=== PATIENT | female | born 1935 | race Caucasian/White ===

== ENCOUNTER 2021-11-19 11:06 | Inpatient (IN) | payer OTHER ==
[~2021-11-19] VITALS: Ht 147.3 cm; Wt 49.4 kg
[2021-11-19] MEDS ORDERED: KETOROLAC 30MG/ML VIAL IV STA (13:12)
[2021-11-19] MEDS ORDERED: SODIUM CHLORIDE 0.9% 1,000 ML IV ONE (13:15)
[2021-11-19 13:39] LABS: BASOPHILS % 0.3 % (0.0-2.0); EOSINOPHILS % 0.9 % (0.0-5.0); HEMATOCRIT. 35.3 % (36.0-48.0); HEMOGLOBIN. 11.3 g/dL (12.0-16.0); LYMPHOCYTES % 11.4 % (20.0-50.0); MEAN CORPUSCULAR HEMOGLOBIN 26.5 pg (28.0-32.0); MEAN CORPUSCULAR VOLUME 82.8 fL (81.0-99.0); MEAN PLATELET VOLUME 6.9 fl (7.4-10.4); MONOCYTES % 10.2 % (2.0-8.0); NEUTROPHILS % 77.2 % (40.0-76.0); PLATELET 273 x1000/uL (130-400); RED BLOOD CELL COUNT 4.27 mill/uL (4.2-5.4); RED CELL DISTRIBUTION WIDTH 16.9 % (11.6-14.6)
[2021-11-19 13:45] LABS: CHLORIDE 102 mEq/L (98-107)
[2021-11-19 15:53] LABS: CLARITY URINE CLEAR (CLEAR); COLOR URINE YELLOW (YELLOW); KETONES URINE TRACE (NEGATIVE); LEUKOCYTE ESTERASE URINE NEGATIVE (NEGATIVE); NITRITE URINE NEGATIVE (NEGATIVE); OCCULT BLOOD URINE NEGATIVE (NEGATIVE); PH URINE 6.5 (4.5-8.0); PROTEIN URINE NEGATIVE (NEGATIVE); SPECIFIC GRAVITY URINE 1.005 (1.005-1.030)
[2021-11-19] MEDS ORDERED: AMPICILLIN SOD/SULBACTAM NA 3 G in SODIUM CHLORIDE 0.9% 100 ML IV STA (16:51)
[2021-11-19] MEDS ORDERED: MORPHINE SULFATE 2 MG/ML CPJ (NOT FOR IM USE) IV ONE (17:00)
[2021-11-19 21:45] VITALS: BP 143/51
[2021-11-19 22:30] VITALS: BP 143/51
[2021-11-19] MEDS ORDERED: METRONIDAZOLE 500 MG PREMIX 100 ML IV SCH (23:15)
[2021-11-19] MEDS ORDERED: CEFTRIAXONE 1 G PREMIX 50 ML IV SCH (23:30)
[2021-11-19] MEDS: ACETAMINOPHEN 325MG TABLET PO PRN (23:57)
[2021-11-20] VITALS: BP 145/78
[2021-11-20] MEDS: CEFTRIAXONE 1,000 MG in DEXTROSE 5% WATER 50 ML IV SCH (01:38)
[2021-11-20] MEDS: SODIUM CHLORIDE 0.9% 1,000 ML IV SCH ×2 (01:38→19:30)
[2021-11-20 04:00] VITALS: BP 103/30
[2021-11-20] MEDS: METRONIDAZOLE 500 MG PREMIX 100 ML IV SCH ×3 (05:11→20:47)
[2021-11-20 07:10] LABS: HEMATOCRIT. 30.3 % (36.0-48.0); HEMOGLOBIN. 9.7 g/dL (12.0-16.0); MEAN CORPUSCULAR HEMOGLOBIN 26.4 pg (28.0-32.0); MEAN CORPUSCULAR VOLUME 82.6 fL (81.0-99.0); MEAN PLATELET VOLUME 6.5 fl (7.4-10.4); PLATELET 243 x1000/uL (130-400); RED BLOOD CELL COUNT 3.67 mill/uL (4.2-5.4); RED CELL DISTRIBUTION WIDTH 16.4 % (11.6-14.6)
[2021-11-20 07:21] LABS: CHLORIDE 109 mEq/L (98-107)
[2021-11-20 08:00] VITALS: BP 135/35
[2021-11-20] MEDS ORDERED: CEFTRIAXONE SODIUM 1 G/VIAL IM SCH (09:00)
[2021-11-20 09:40] LABS: PLATELET ESTIMATE NORMAL
[2021-11-20 12:00] VITALS: BP 134/42
[2021-11-20] MEDS: ACETAMINOPHEN 325MG TABLET PO PRN (14:24)
[2021-11-20 16:00] VITALS: BP 151/45
[2021-11-20 20:00] VITALS: BP 136/48
[2021-11-21] VITALS: BP 135/50
[2021-11-21] MEDS: CEFTRIAXONE 1,000 MG in DEXTROSE 5% WATER 50 ML IV SCH (01:20)
[2021-11-21 04:00] VITALS: BP 129/32
[2021-11-21] MEDS: METRONIDAZOLE 500 MG PREMIX 100 ML IV SCH ×3 (05:07→21:08)
[2021-11-21 07:27] LABS: PROTHROMBIN TIME 11.1 sec (9.6-11.0)
[2021-11-21 07:33] LABS: BASOPHILS % 0.5 % (0.0-2.0); EOSINOPHILS % 3.5 % (0.0-5.0); HEMATOCRIT. 31.2 % (36.0-48.0); LYMPHOCYTES % 24.8 % (20.0-50.0); MEAN CORPUSCULAR HEMOGLOBIN 26.7 pg (28.0-32.0); MEAN PLATELET VOLUME 6.5 fl (7.4-10.4); MONOCYTES % 14.6 % (2.0-8.0); NEUTROPHILS % 56.6 % (40.0-76.0); PLATELET 282 x1000/uL (130-400); RED BLOOD CELL COUNT 3.75 mill/uL (4.2-5.4); RED CELL DISTRIBUTION WIDTH 16.8 % (11.6-14.6)
[2021-11-21 07:57] LABS: CHLORIDE 113 mEq/L (98-107)
[2021-11-21 08:00] VITALS: BP 137/57
[2021-11-21 08:06] LABS: TOTAL IRON BINDING CAPACITY 227 ug/dL (250-450)
[2021-11-21 08:09] LABS: FOLIC ACID (FOLATE) SERUM 13.1 ng/mL (>5.38)
[2021-11-21 12:00] VITALS: BP 133/65
[2021-11-21] MEDS: SODIUM CHLORIDE 0.9% 1,000 ML IV SCH (14:32)
[2021-11-21 17:54] VITALS: BP 148/51
[2021-11-21] MEDS: ACETAMINOPHEN 325MG TABLET PO PRN (21:22)
[2021-11-22] MEDS: CEFTRIAXONE 1,000 MG in DEXTROSE 5% WATER 50 ML IV SCH (00:31)
[2021-11-22] MEDS: METRONIDAZOLE 500 MG PREMIX 100 ML IV SCH ×2 (05:06→13:18)
[2021-11-22 07:31] LABS: HEMATOCRIT. 33.3 % (36.0-48.0); HEMOGLOBIN. 10.6 g/dL (12.0-16.0); MEAN CORPUSCULAR HEMOGLOBIN 26.2 pg (28.0-32.0); MEAN CORPUSCULAR VOLUME 82.4 fL (81.0-99.0); MEAN PLATELET VOLUME 6.2 fl (7.4-10.4); PLATELET 309 x1000/uL (130-400); RED BLOOD CELL COUNT 4.05 mill/uL (4.2-5.4); RED CELL DISTRIBUTION WIDTH 16.9 % (11.6-14.6)
[2021-11-22 08:00] VITALS: BP 131/53
[2021-11-22 08:15] LABS: CHLORIDE 112 mEq/L (98-107)
[2021-11-22] MEDS: SODIUM CHLORIDE 0.9% 1,000 ML IV SCH (11:18)
[2021-11-22 12:00] VITALS: BP 162/46
[2021-11-22 12:30] VITALS: BP 150/42
[2021-11-22] MEDS: ACETAMINOPHEN 325MG TABLET PO PRN (13:32)
[2021-11-22 16:00] VITALS: BP 157/52
[2021-11-22] MEDS ORDERED: POTASSIUM CHLORIDE 20MEQ TABLET SR PO NR (16:00)
[2021-11-22 16:51] LABS: PLATELET ESTIMATE NORMAL
[2021-11-22 20:57] VITALS: BP 162/67
[2021-11-23 00:11] VITALS: BP 155/44
[2021-11-23 03:46] VITALS: BP 160/48
[2021-11-23] MEDS: CEFTRIAXONE 1,000 MG in DEXTROSE 5% WATER 50 ML IV SCH (04:11)
[2021-11-23] MEDS: METRONIDAZOLE 500 MG PREMIX 100 ML IV SCH ×4 (04:13→21:34)
[2021-11-23] MEDS: SODIUM CHLORIDE 0.9% 1,000 ML IV SCH (06:45)
[2021-11-23 07:18] LABS: HEMATOCRIT. 31.7 % (36.0-48.0); HEMOGLOBIN. 10.2 g/dL (12.0-16.0); MEAN CORPUSCULAR HEMOGLOBIN 26.4 pg (28.0-32.0); MEAN CORPUSCULAR VOLUME 81.8 fL (81.0-99.0); MEAN PLATELET VOLUME 5.9 fl (7.4-10.4); PLATELET 329 x1000/uL (130-400); RED BLOOD CELL COUNT 3.88 mill/uL (4.2-5.4); RED CELL DISTRIBUTION WIDTH 16.5 % (11.6-14.6)
[2021-11-23 07:44] LABS: CHLORIDE 112 mEq/L (98-107)
[2021-11-23 08:00] VITALS: BP 161/50
[2021-11-23] MEDS ORDERED: CLONIDINE 0.1MG TABLET PO PRN (11:15)
[2021-11-23] MEDS: ACETAMINOPHEN 325MG TABLET PO PRN (11:22)
[2021-11-23 12:00] VITALS: BP 142/58
[2021-11-23 13:58] LABS: PLATELET ESTIMATE NORMAL
[2021-11-23 16:00] VITALS: BP 177/50
[2021-11-23 20:00] VITALS: BP 172/53
[2021-11-24] VITALS: BP 102/35
[2021-11-24] MEDS: SODIUM CHLORIDE 0.9% 1,000 ML IV SCH (03:03)
[2021-11-24] MEDS: CEFTRIAXONE 1,000 MG in DEXTROSE 5% WATER 50 ML IV SCH (03:04)
[2021-11-24 04:00] VITALS: BP 140/39
[2021-11-24] MEDS: METRONIDAZOLE 500 MG PREMIX 100 ML IV SCH ×3 (05:46→20:52)
[2021-11-24 08:00] VITALS: BP 145/54
[2021-11-24 08:57] LABS: HEMATOCRIT. 32.6 % (36.0-48.0); HEMOGLOBIN. 10.3 g/dL (12.0-16.0); PLATELET 332 x1000/uL (130-400); RED BLOOD CELL COUNT 3.98 mill/uL (4.2-5.4); RED CELL DISTRIBUTION WIDTH 17.2 % (11.6-14.6)
[2021-11-24 09:06] LABS: CHLORIDE 112 mEq/L (98-107)
[2021-11-24 11:05] LABS: PLATELET ESTIMATE NORMAL
[2021-11-24] MEDS ORDERED: POTASSIUM CHLORIDE 20MEQ TABLET SR PO NR (11:15)
[2021-11-24 12:00] VITALS: BP 149/50
[2021-11-24 16:00] VITALS: BP 156/46
[2021-11-24 20:00] VITALS: BP 165/54
[2021-11-25] VITALS (7 sets, daily range): BP systolic 115–169; BP diastolic 50–79
[2021-11-25] MEDS: SODIUM CHLORIDE 0.9% 1,000 ML IV SCH ×2 (00:18→19:58)
[2021-11-25] MEDS: CEFTRIAXONE 1,000 MG in DEXTROSE 5% WATER 50 ML IV SCH (02:11)
[2021-11-25 08:47] LABS: HEMATOCRIT. 33.6 % (36.0-48.0); HEMOGLOBIN. 10.8 g/dL (12.0-16.0); MEAN CORPUSCULAR HEMOGLOBIN 26.3 pg (28.0-32.0); MEAN CORPUSCULAR VOLUME 81.4 fL (81.0-99.0); PLATELET 348 x1000/uL (130-400); RED BLOOD CELL COUNT 4.12 mill/uL (4.2-5.4)
[2021-11-25 09:19] LABS: CHLORIDE 114 mEq/L (98-107)
[2021-11-25 09:37] LABS: PLATELET ESTIMATE NORMAL
[2021-11-25] MEDS ORDERED: METR-167 MT (13:42)
[2021-11-25] MEDS ORDERED: ACET-3163 MT (13:42)
[2021-11-25] MEDS ORDERED: LEVO500T90 MT (13:42)
== END 2021-11-25 22:21 | disposition home or self-care (01) | DRG 244 ==
LOC: ER 11:06 → EDBEDREQ 18:00 → 6EST 19:23 → EDBEDREQTM 19:31 → EDBEDREQ 19:31 → ENRESERV 19:59
PROVIDERS: ADMIT Internal Medicine; ATTEND Internal Medicine
DX: K57.32 Diverticulitis of large intestine without perforation or abscess without bleeding (principal); E44.1 Mild protein-calorie malnutrition; J84.10 Pulmonary fibrosis, unspecified; E88.09 Other disorders of plasma-protein metabolism, not elsewhere classified; D50.9 Iron deficiency anemia, unspecified; D72.825 Bandemia; N32.89 Other specified disorders of bladder; R33.9 Retention of urine, unspecified; Z68.21 Body mass index [BMI] 21.0-21.9, adult
CPT/HCPCS: 36415; 71045; 74176; 80048; 80053; 81003; 82378; 82607; 82728; 82746; 83540; 83550; 85025; 85044; 93005; 99285; C1893; J0295; J0696; J1885; J2270; J3490; J7030; J7050; J7060; A4315

== ENCOUNTER 2022-09-17 09:48 | Emergency (ER) | payer MEDICAID ==
[~2022-09-17] VITALS: Ht 144.8 cm; Wt 77.0 kg
[~2022-09-17 09:48] MED LIST: ACET-3163 MT; LEVO-65 MT; MECL-217 MT; METR-167 MT; NITR-87 MT
[2022-09-17 10:09] VITALS: BP 168/63; PULSE 95; RESP 16; O2SAT 98
[2022-09-17 10:45] VITALS: TEMP 98.5
[2022-09-17] MEDS ORDERED: ACETAMINOPHEN 325MG TABLET PO ONE (10:45)
[2022-09-17] MEDS ORDERED: ACET-2708 MT (12:18)
== END 2022-09-17 12:49 | disposition home or self-care (01) ==
LOC: ER 09:59
DX: S00.03XA Contusion of scalp, initial encounter (principal); S09.90XA Unspecified injury of head, initial encounter; I10 Essential (primary) hypertension; W18.30XA Fall on same level, unspecified, initial encounter; Y93.89 Activity, other specified; Y92.89 Other specified places as the place of occurrence of the external cause; Y99.8 Other external cause status
CPT/HCPCS: 99284